=== PATIENT | female | born 1990 | race Two or more races ===

== ENCOUNTER 2020-01-06 04:20 | Emergency (ER) | payer SELFPAY ==
[~2020-01-06] VITALS: Ht 154.9 cm; Wt 90.9 kg
[~2020-01-06 04:20] MED LIST: ACET-704 PO; IBUP-1060 PO
--- NOTE | 2020-01-06 04:57 | PHYS DOC ---
Past Medical History Past Medical History: No Pertinent History Past Surgical History: No Surgical History Smoking Status: Never Smoker Alcohol Use: None General Adult EDM: Chief Complaint: VAGINAL BLEEDING HPI: HPI: Patient is a 29 year old female presenting to the ED with a chief complaint of vaginal bleeding. Patient is G3, P1 and is 7 weeks . Patient states that she had spotting for the last 2 days and mild pelvic cramping. Patient denies fever, chills, nausea, vomiting, dysuria. Review of Systems: Review of Systems: Constitutional: Denies fever or chills. [] Eyes: Denies change in visual acuity. [] HENT: Denies nasal congestion or sore throat. [] Respiratory: Denies cough or shortness of breath. [] Cardiovascular: Denies chest pain or edema. [] GI: Denies abdominal pain, nausea, vomiting, bloody stools or diarrhea. [] : Complains of vaginal bleeding and pelvic pain Neurologic: Denies headache, focal weakness or sensory changes. [] Heart Score: Risk Factors: Risk Factors: DM, Current or recent (<one month) smoker, HTN, HLP, family history of CAD, obesity. Risk Scores: Score 0 - 3: 2.5% MACE over next 6 weeks - Discharge Home Score 4 - 6: 20.3% MACE over next 6 weeks - Admit for Clinical Observation Score 7 - 10: 72.7% MACE over next 6 weeks - Early Invasive Strategies Allergies: Allergies: Allergies Coded Allergies Type Severity Reaction Last Updated Verified No Known Drug Allergies 12/11/14 No Physical Exam: PE: Constitutional: Well developed, well nourished, no acute distress, non-toxic appearance. [] HENT: Normocephalic, atraumatic Eyes: EOMI Neck: Normal range of motion, Supple Cardiovascular: Heart rate regular rhythm Lungs & Thorax: Bilateral breath sounds clear to auscultation [] Abdomen: Bowel sounds normal, soft, no tenderness, gravid abdomen Extremities: No tenderness, ROM intact Neurologic: Alert and oriented X 3 Current Patient Data: Vital Signs: Vital Signs Date Time Temp Pulse Resp B/P (MAP) Pulse Ox O2 Delivery O2 Flow Rate FiO2 01/06/20 04:23 98.2 113 18 145/75 (98) 100 Room Air 98.2 EKG: EKG: [] Radiology/Procedures: Radiology/Procedures: [] Course & Med Decision Making: Course & Med Decision Making Pertinent Labs and Imaging studies reviewed. (See chart for details) Ordered labs, UA, beta-hCG, ultrasound of the pelvis Beta-hCG level is 2304. The oil and gas exploration technician states that the ultrasound does not show sac. Most likely" indicative of threatened miscarriage. Patient to follow-up with her DATABASE TECHNICIAN. Baileeon Disclaimer: Marlee Disclaimer: This electronic medical record was generated, in whole or in part, using a voice recognition dictation system. Departure Departure Referrals: NO PCP (PCP) Justicifation of Admission Dx: Justifications for Admission: Justification of Admission Dx: No CORIE TORRES DO Jan 06, 2020 04:57
[2020-01-06] MEDS ORDERED: IV NORMAL SALINE 1000ML BAG 1,000 ML IV ONE (05:00)
[2020-01-06 05:08] LABS: BASO % 0 % (0-3); EOS # 0.2 x10^3/uL (0.0-0.7); EOS % 2 % (0-3); HEMATOCRIT 38.9 % (36.0-47.0); HEMOGLOBIN 13.1 g/dL (12.0-15.5); LYMPH # 4.1 x10^3/uL (1.0-4.8); LYMPH % 34 % (24-48); MEAN CORPUSCULAR HEMOGLOBIN 27 pg (25-35); MEAN CORPUSCULAR HGB CONC 34 g/dL (31-37); MEAN CORPUSCULAR VOLUME 80 fL (79-100); MONO # 0.8 x10^3/uL (0.0-1.1); MONO % 6 % (0-9); NEUT # 6.9 x10^3/uL (1.8-7.7); NEUT % 57 % (31-73); PLATELET COUNT 288 x10^3/uL (140-400); RED BLOOD COUNT 4.87 x10^6/uL (3.50-5.40); RED CELL DISTRIBUTION WIDTH 14.2 % (11.5-14.5)
[2020-01-06 05:18] LABS: CALCIUM 8.7 mg/dL (8.5-10.1); CREATININE 0.7 mg/dL (0.6-1.0); GFR 100.4; POTASSIUM 3.8 mmol/L (3.5-5.1)
[2020-01-06 05:24] LABS: ALBUMIN 3.4 g/dL (3.4-5.0); ALBUMIN/GLOBULIN RATIO 0.9 (1.0-1.7); TOTAL BILIRUBIN 0.2 mg/dL (0.2-1.0)
--- NOTE | 2020-01-06 06:05 | RAD ---
INDICATION: Reason: vaginal bleeding / Spl. Instructions: / History: COMPARISON: None. TECHNIQUE: Grayscale and color ultrasound images uterus and adnexa. Transvaginal imaging was performed. FINDINGS: Uterus: 110 x 58 x 53 mm. Endometrial Stripe: 12 mm. Right Ovary: 32 x 19 x 19 mm. Left Ovary: 33 x 25 x 23 mm. Vascular flow identified to bilateral ovaries. IMPRESSION: * No intrauterine gestational sac is seen at this time. * Vascular flow is seen to the bilateral ovaries. * At the left ovary there is a 17 x 13 mm mildly hypoechoic lesion. Could be from causes such as hemorrhagic cyst, corpus luteum cyst with endometrioma not excluded. Obtaining a follow-up to ensure that there is appropriate development of an intrauterine gestational sac to exclude early failure or ectopic. Electronically signed by: Geoff Rangel MD (01/06/2020 6:01 AM) [id number]
[2020-01-06 07:19] LABS: BILIRUBIN,URINE NEGATIVE (NEG); CLARITY,URINE CLEAR; NITRITE,URINE NEGATIVE (NEG); PROTEIN,URINE 30 mg/dL (NEG-TRACE); UROBILINOGEN,URINE 0.2 mg/dL (0.2 mg/dL)
[2020-01-06 07:38] LABS: COLOR,URINE PINK
[2020-01-06 07:39] LABS: BACTERIA,URINE FEW /HPF (0-FEW); RBC,URINE TNTC /HPF (0-2); SQUAMOUS EPITHELIAL CELL,UR FEW /LPF; WBC,URINE 0 /HPF (0-4)
--- NOTE | 2020-01-06 08:06 | PDOC1 ---
History and Physical Date of Admission Date of Admission DATE: 01/06/20 TIME: 07:58 Identification/Chief Complaint Chief Complaint vaginal bleeding Source Source: Chart review, Patient History of Present Illness History of Present Illness 29 y/o @ 7 wks by LMP presented to ED with c/o vaginal bleeding. HCG level is 2300 and sono did not indicate gestational sac in uterus. Pt. with tachycardia. Past Surgical History Past Surgical History: No pertinent history Current Medications Current Medications Current Medications Sodium Chloride 1,000 ml @ 1,000 mls/hr 1X ONCE IV Last administered on 01/06/20at 04:58; Start 01/06/20 at 05:00; Stop 01/06/20 at 05:59; Status DC Active Scripts Active Tylenol With Codeine #3 Tablet (Acetaminophen With Codeine) 1 Each Tablet 1 Each PO Q4H PRN Ibuprofen 800 Mg Tablet 800 Mg PO Q6H PRN Allergies Allergies: Coded Allergies: No Known Drug Allergies (Unverified , 12/11/14) ROS General: YES: Fatigue PSYCHOLOGICAL ROS: YES: Anxiety; No: Behavioral Disorder, Concentration difficultie, Decreased libido, Depression, Disorientation, Hallucinations, Hostility, Irritablity, Memory difficulties, Mood Swings, Obsessive thoughts, Physical abuse, Sexual abuse, Sleep disturbances, Suicidal ideation, Other Eyes: No Blurry vision, No Decreased vision, No Double vision, No Dry eyes, No Excessive tearing, No Eye Pain, No Itchy Eyes, No Loss of vision, No Photophobia, No Scotomata, No Uses contacts, No Uses glasses, No Other HEENT: No: Heacaches, Visual Changes, Hearing change, Nasal congestion, Nasal discharge, Oral lesions, Sinus pain, Sore Throat, Epistaxis, Sneezing, Snoring, Tinnitus, Vertigo, Vocal changes, Other Hematological and Lymphatic: No: Bleeding Problems, Blood Clots, Blood Transfusions, Brusing, Night Sweats, Pallor, Swollen Lymph Nodes, Other ENDOCRINE: No: Breast Changes, Galactorrhea, Hair Pattern Changes, Hot Flashes, Malaise/lethargy, Mood Swings, Palpitations, Polydipsia/polyuria, Skin Changes, Temperature Intolerance, Unexpected Weight Changes, Other Breast: No New/Changing Breast Lumps, No Nipple changes, No Nipple discharge, No Other Respiratory: No: Cough, Hemoptysis, Orthopnea, Pleuritic Pain, Shortness of breath, SOB with excertion, Sputum Changes, Stridor, Tachypnea, Wheezing, Other Cardiovascular: No Chest Pain, No Palpitations, No Orthopnea, No Paroxysmal Noc. Dyspnea, No Edema, No Lt Headedness, No Other Gastrointestinal: No Nausea, No Vomiting, No Abdominal Pain, No Diarrhea, No Constipation, No Melena, No Hematochezia, No Other Skin: No Dry Skin, No Eczema, No Hair Changes, No Lumps, No Mole Changes, No Mottling, No Nail Changes, No Pruritus, No Rash, No Skin Lesion Changes, No Other, No Acne Physical Exam General: mild distress HEENT: Atraumatic Heart: other (tachycardia) Abdomen: Soft, No tenderness PELVIC: Other (deferred for possible ectopic ) Psych/Mental Status: Mental status NL Vitals Vitals Vital Signs Date Time Temp Pulse Resp B/P (MAP) Pulse Ox O2 Delivery O2 Flow Rate FiO2 01/06/20 06:25 109 19 115/65 (82) 100 Room Air 01/06/20 04:23 98.2 98.2 Labs Labs Laboratory Tests Test 01/06/20 04:55 01/06/20 06:45 01/06/20 06:50 White Blood Count 12.0 x10^3/uL (4.0-11.0) Red Blood Count 4.87 x10^6/uL (3.50-5.40) Hemoglobin 13.1 g/dL (12.0-15.5) Hematocrit 38.9 % (36.0-47.0) Mean Corpuscular Volume 80 fL (79-100) Mean Corpuscular Hemoglobin 27 pg (25-35) Mean Corpuscular Hemoglobin Concent 34 g/dL (31-37) Red Cell Distribution Width 14.2 % (11.5-14.5) Platelet Count 288 x10^3/uL (140-400) Neutrophils (%) (Auto) 57 % (31-73) Lymphocytes (%) (Auto) 34 % (24-48) Monocytes (%) (Auto) 6 % (0-9) Eosinophils (%) (Auto) 2 % (0-3) Basophils (%) (Auto) 0 % (0-3) Neutrophils # (Auto) 6.9 x10^3/uL (1.8-7.7) Lymphocytes # (Auto) 4.1 x10^3/uL (1.0-4.8) Monocytes # (Auto) 0.8 x10^3/uL (0.0-1.1) Eosinophils # (Auto) 0.2 x10^3/uL (0.0-0.7) Basophils # (Auto) 0.0 x10^3/uL (0.0-0.2) Maternal Serum HCG Beta Subunit 2304 mIU/mL (0-5) Sodium Level 138 mmol/L (136-145) Potassium Level 3.8 mmol/L (3.5-5.1) Chloride Level 101 mmol/L (98-107) Carbon Dioxide Level 28 mmol/L (21-32) Anion Gap 9 (6-14) Blood Urea Nitrogen 10 mg/dL (7-20) Creatinine 0.7 mg/dL (0.6-1.0) Estimated GFR (Cockcroft-Gault) 100.4 BUN/Creatinine Ratio 14 (6-20) Glucose Level 170 mg/dL (70-99) Calcium Level 8.7 mg/dL (8.5-10.1) Total Bilirubin 0.2 mg/dL (0.2-1.0) Aspartate Amino Transf (AST/SGOT) 9 U/L (15-37) Alanine Aminotransferase (ALT/SGPT) 15 U/L (14-59) Alkaline Phosphatase 93 U/L (46-116) Total Protein 7.0 g/dL (6.4-8.2) Albumin 3.4 g/dL (3.4-5.0) Albumin/Globulin Ratio 0.9 (1.0-1.7) Urine Collection Type Void Urine Color [place] Urine Clarity Clear Urine pH 6.0 (<5.0-8.0) Urine Specific [place] 1.010 (1.000-1.030) Urine Protein 30 mg/dL (NEG-TRACE) Urine Glucose (UA) Negative mg/dL (NEG) Urine Ketones (Stick) Negative mg/dL (NEG) Urine Blood Large (NEG) Urine Nitrite Negative (NEG) Urine Bilirubin Negative (NEG) Urine Urobilinogen Dipstick 0.2 mg/dL (0.2 mg/dL) Urine Leukocyte Esterase Trace (NEG) Urine RBC Tntc /HPF (0-2) Urine WBC 0 /HPF (0-4) Urine Squamous Epithelial Cells Few /LPF Urine Bacteria Few /HPF (0-FEW) Bedside Urine HCG, Qualitative Hcg positive (Negative) Laboratory Tests Test 01/06/20 04:55 01/06/20 06:45 01/06/20 06:50 White Blood Count 12.0 x10^3/uL (4.0-11.0) Red Blood Count 4.87 x10^6/uL (3.50-5.40) Hemoglobin 13.1 g/dL (12.0-15.5) Hematocrit 38.9 % (36.0-47.0) Mean Corpuscular Volume 80 fL (79-100) Mean Corpuscular Hemoglobin 27 pg (25-35) Mean Corpuscular Hemoglobin Concent 34 g/dL (31-37) Red Cell Distribution Width 14.2 % (11.5-14.5) Platelet Count 288 x10^3/uL (140-400) Neutrophils (%) (Auto) 57 % (31-73) Lymphocytes (%) (Auto) 34 % (24-48) Monocytes (%) (Auto) 6 % (0-9) Eosinophils (%) (Auto) 2 % (0-3) Basophils (%) (Auto) 0 % (0-3) Neutrophils # (Auto) 6.9 x10^3/uL (1.8-7.7) Lymphocytes # (Auto) 4.1 x10^3/uL (1.0-4.8) Monocytes # (Auto) 0.8 x10^3/uL (0.0-1.1) Eosinophils # (Auto) 0.2 x10^3/uL (0.0-0.7) Basophils # (Auto) 0.0 x10^3/uL (0.0-0.2) Maternal Serum HCG Beta Subunit 2304 mIU/mL (0-5) Sodium Level 138 mmol/L (136-145) Potassium Level 3.8 mmol/L (3.5-5.1) Chloride Level 101 mmol/L (98-107) Carbon Dioxide Level 28 mmol/L (21-32) Anion Gap 9 (6-14) Blood Urea Nitrogen 10 mg/dL (7-20) Creatinine 0.7 mg/dL (0.6-1.0) Estimated GFR (Cockcroft-Gault) 100.4 BUN/Creatinine Ratio 14 (6-20) Glucose Level 170 mg/dL (70-99) Calcium Level 8.7 mg/dL (8.5-10.1) Total Bilirubin 0.2 mg/dL (0.2-1.0) Aspartate Amino Transf (AST/SGOT) 9 U/L (15-37) Alanine Aminotransferase (ALT/SGPT) 15 U/L (14-59) Alkaline Phosphatase 93 U/L (46-116) Total Protein 7.0 g/dL (6.4-8.2) Albumin 3.4 g/dL (3.4-5.0) Albumin/Globulin Ratio 0.9 (1.0-1.7) Urine Collection Type Void Urine Color [place] Urine Clarity Clear Urine pH 6.0 (<5.0-8.0) Urine Specific [place] 1.010 (1.000-1.030) Urine Protein 30 mg/dL (NEG-TRACE) Urine Glucose (UA) Negative mg/dL (NEG) Urine Ketones (Stick) Negative mg/dL (NEG) Urine Blood Large (NEG) Urine Nitrite Negative (NEG) Urine Bilirubin Negative (NEG) Urine Urobilinogen Dipstick 0.2 mg/dL (0.2 mg/dL) Urine Leukocyte Esterase Trace (NEG) Urine RBC Tntc /HPF (0-2) Urine WBC 0 /HPF (0-4) Urine Squamous Epithelial Cells Few /LPF Urine Bacteria Few /HPF (0-FEW) Bedside Urine HCG, Qualitative Hcg positive (Negative) VTE Prophylaxis Ordered VTE Prophylaxis Devices: No VTE Pharmacological Prophylaxi: No Assessment/Plan Assessment/Plan A: 7 wk gestation with ectopic P: Plan LPSC removal ectopic possible Left salpingectomy. Justicifation of Admission Dx: Justifications for Admission: Justification of Admission Dx: Yes Comments: ectopic BRIDGET VINES Jr, MD Jan 06, 2020 08:06
[2020-01-06] MEDS ORDERED: IV RINGERS,LACTATED 1000ML 1,000 ML IV SCH (08:11)
[2020-01-06] MEDS ORDERED: ONDANSETRON PF 4 MG/2 ML VIAL. IVP PRN (08:15)
[2020-01-06] MEDS ORDERED: PROCHLORPERAZINE 10 MG/2 ML VIAL. IVP PRN (08:15)
[2020-01-06] MEDS ORDERED: fentaNYL PF VIAL 100 MCG/2 ML VIAL IVP PRN ×2 (08:15)
[2020-01-06] MEDS ORDERED: MORPHINE SULFATE 2 MG/ML VIAL. IVP PRN (08:15)
[2020-01-06] MEDS ORDERED: HYDROmorphone 2 MG/ML VIAL IVP PRN (08:15)
[2020-01-06] MEDS ORDERED: LIDOCAINE 1% PF 2 ML VIAL. ID PRN (08:15)
[2020-01-06] MEDS ORDERED: ONDANSETRON PF 4 MG/2 ML VIAL. ONE (08:34)
[2020-01-06] MEDS ORDERED: PROPOFOL 10 MG/ML (20ML) VIAL. IV ONE (08:34)
[2020-01-06] MEDS ORDERED: LIDOCAINE 2% PF 5 ML VIAL. ONE (08:34)
[2020-01-06] MEDS ORDERED: MIDAZOLAM HCL/PF 2 MG/2 ML VIAL. ONE (08:34)
[2020-01-06] MEDS ORDERED: fentaNYL PF VIAL 100 MCG/2 ML VIAL ONE (08:34)
[2020-01-06] MEDS ORDERED: SURGICEL HEMOSTAT 4X8 EACH. ONE (08:34)
[2020-01-06] MEDS ORDERED: BUPIVACAINE-EPI 0.25%-1:200000 MPF 30 ML VIAL. ONE (08:34)
[2020-01-06] MEDS ORDERED: GLYCOPYRROLATE 1 MG/5 ML VIAL. ONE (08:38)
[2020-01-06] MEDS ORDERED: DEXAMETHASONE SOD PHOS 4 MG/ML VIAL ONE (08:49)
[2020-01-06] MEDS ORDERED: ePHEDrine PF IN SALINE 50 MG/10 ML SYRINGE. IV ONE (08:49)
[2020-01-06] MEDS ORDERED: ROCURONIUM 50 MG/5 ML VIAL. ONE (08:49)
[2020-01-06] MEDS ORDERED: SUCCINYLCHOLINE 200 MG/10 ML VIAL. ONE (08:50)
[2020-01-06] MEDS ORDERED: ceFAZolin SODIUM IV Push 1 GM VIAL. IVP ONE ×2 (09:43)
[2020-01-06] MEDS ORDERED: SEVOFLURANE 61 TO 120 MINUTES. IH ONE (10:13)
--- NOTE | 2020-01-06 10:51 | PDOC ---
BRIEF OPERATIVE NOTE Date: Jan 06, 2020 Pre-Op Diagnosis ectopic Post-Op Diagnosis Same Procedure Performed Dx [facility] Surgeon Dr. Schneider Anesthesia Type: General Blood Loss 10 ml Specimens Obtained uterine tissue Findings small tissue at cervical os, nml size uterus, nml fallopian tubes and ovaries bi lDenise Complications none BRIDGET SCHNEIDER Jr, MD Jan 06, 2020 10:51
--- NOTE | 2020-01-06 10:53 | DISCH ---
DISCHARGE INSTRUCTIONS Condition on Discharge Condition on Discharge: Stable Activity After Discharge Activity Instructions for Disc: Activity as tolerated Lifting Instructions after Dis: No heavy lifting, No pulling or pushing, Do not lift >10 pounds Exercise Instruction after Dis: Progress as tolerated Driving Instructions after Dis: Do not drive today Weight Bearing Status after Di: As tolerated Diet after Discharge Diet after Discharge: Regular Diet Texture: Regular Wound Incision Care Wound/Incision Care: No wound care needed Checks after Discharge Checks after discharge: Check your Temp as needed Contacting the DRDenise after DC Call your doctor for: If your condition worsens Follow-Up Follow up with: Dr. Schneider in 2 days Treatment/Equipment after DC Adaptive Equipment Issued: None BRIDGET SCHNEIDER Jr, MD Jan 06, 2020 10:53
[2020-01-06 11:00] VITALS: BP 121/68
--- NOTE | 2020-01-06 12:47 | OP ---
DATE OF SURGERY: 01/06/2020 PREOPERATIVE DIAGNOSIS: Ectopic . POSTOPERATIVE DIAGNOSIS: Ectopic . PROCEDURE: Diagnostic laparoscopy. SURGEON: Tato Schneider MD ANESTHESIA: GETA. ESTIMATED BLOOD LOSS: 10 mL. COMPLICATIONS: None. FINDINGS: Small tissue at the cervical os. Normal size uterus. Normal fallopian tubes and ovaries bilaterally. SUMMARY: A 29-year-old female 3, para 1 at about 7 weeks presented with left lower quadrant abdominal pain and vaginal bleeding. HCG level was greater than 2300 with sonogram indicating no intrauterine with possible 2 cm cyst or lesion on the left side. The patient was counseled on the risks, benefits and expectations of laparoscopic removal of ectopic with possibility of left salpingectomy. She voiced clear understanding to proceed. DESCRIPTION OF PROCEDURE: The patient was taken to surgery suite and placed in dorsal lithotomy position, was prepped with Betadine solution and draped with Betadine solution for vaginal prep and ChloraPrep for abdominal prep and draped in sterile fashion. After adequate anesthesia, bivalve speculum was placed vaginally. Anterior lip of the cervix was grasped with single tooth tenaculum. There was a small amount of tissue at the cervical os that was removed with ring forceps. Uterine acorn manipulator was then placed. Attention was then placed on abdomen. A small transverse skin incision was made with scalpel just below the umbilicus. The Veress needle was then placed through the infraumbilical incision site. The abdomen was allowed to insufflate up to 1.5 L CO2 gas. The Veress needle was then removed. A 5 mm trocar was placed. Scope was positioned. The uterus appeared normal size. Fallopian tubes and ovaries appeared normal bilaterally. There was not any evidence of ectopic around the ovary or fallopian tubes. The remainder of the abdominal cavity was evaluated without any evidence of . The trocars were then removed under direct visualization. The abdomen was allowed to deflate as much as possible along with mechanical manipulation. The two skin incisions were reapproximated using 4-0 Vicryl suture in a subcuticular manner. A 0.25% Marcaine with epinephrine was injected at each incision site. Uterine acorn manipulator and single tooth tenaculum were removed. The patient tolerated the procedure well and recovered in the biplane room due to her COVID unknown status without any difficulty and would be discharged home the same day and follow up in clinic in the next 2 days. TATO SCHNEIDER MD DR: KO/maximiliano JOB#: [id number] / [id number]
--- NOTE | 2020-01-07 15:07 | PATHOLOGY ---
[facility] Accession Number: [id number] . 01 Material submitted: . uterus - UTERINE BIOPSY . 01 Clinical history: . Ectopic . 02 Diagnosis: Uterine biopsy: - Decidual cast showing focal hemorrhage and acute inflammation. ([facility] 01/07/2020) [facility] 01/07/2020 0945 Local . 02 Comment: No chorionic villi are identified. ([facility] 01/07/2020) . 02 Electronically signed: . Boby Loza MD, Pathologist NPI- [id number] . 01 Gross description: . The specimen is received in formalin, labeled "Parmar, Guerit[place], uterine biopsy" and consists of 2 segments of hemorrhagic pink-purple possible decidual tissue measuring 6.3 x 3.8 x 0.6 cm. Manager Star tissue is submitted in A1-A3. ([facility]; 01/06/2020) SYU/SYU 01/06/2020 1706 Local . 02 Pathologist provided ICD-10: O00.90 . 02 CPT . 038043 Specimen Comment: A courtesy copy of this report has been sent to [phone] Specimen Comment: Report sent to Performed at: 01 [facility] [address], [place] [id number] MD Perry Ocampo MD Phone: [phone] Performed at: 02 [facility] [address] [place], [place] [id number] MD Boby Loza MD Phone: [phone]
== END 2020-01-06 11:35 | disposition home or self-care (01) ==
LOC: ER 04:20
DX: O46.91 Antepartum hemorrhage, unspecified, first trimester (principal); R10.2 Pelvic and perineal pain; Z3A.01 Less than 8 weeks gestation of pregnancy
CPT/HCPCS: 36415; 76817; 80053; 81001; 81025; 84702; 85025; 86850; 86900; 86901; 87086; 99285; A7015; J0330; J0690; J1100; J2250; J2405; J2704; J3010; J3490; J7030; 88305